=== PATIENT | female | born 1990 | race African-American/Black ===

== ENCOUNTER 2019-03-04 15:05 | Emergency (ER) | payer OTHER ==
[~2019-03-04] VITALS: Ht 170.2 cm; Wt 74.8 kg
[2019-03-04 15:54] LABS: BACTERIA,URINE 0 /HPF (0-FEW); BILIRUBIN,URINE NEG (NEG); CLARITY,URINE CLEAR; COLOR,URINE YELLOW; GLUCOSE,URINE NEG (NEG); NITRITE,URINE NEG (NEG); RBC,URINE 0 /HPF (0-2); SQUAMOUS EPITHELIAL CELL,UR OCC /LPF; UROBILINOGEN,URINE 0.2 mg/dL (0.2 mg/dL); WBC,URINE 0 /HPF (0-4)
[2019-03-04 15:55] LABS: U PREG PATIENT NEGATIVE (NEG)
[2019-03-04 15:59] LABS: AMPHETAMINE/METHAMPHETAMINE NEG (NEG); BARBITURATES NEG (NEG); BENZODIAZEPINES NEG (NEG); CANNABINOIDS NEG (NEG); COCAINE NEG (NEG); METHADONE NEG (NEG); OPIATES NEG (NEG); PHENCYCLIDINE NEG (NEG)
[2019-03-04] MEDS: hydrOXYzine HCL 25 MG TABLET PO PRN (16:06)
[2019-03-04 16:26] LABS: BASO % 1 % (0-3); EOS % 1 % (0-3); HEMATOCRIT 42.4 % (36.0-47.0); LYMPH % 34 % (24-48); MEAN CORPUSCULAR HEMOGLOBIN 31 pg (25-35); MEAN CORPUSCULAR HGB CONC 33 g/dL (31-37); MEAN CORPUSCULAR VOLUME 92 fL (79-100); MONO # 0.4 x10^3/uL (0.0-1.1); MONO % 8 % (0-9); NEUT # 3.3 x10^3uL (1.8-7.7); NEUT % 58 % (31-73); PLATELET COUNT 191 x10^3/uL (140-400); RED CELL DISTRIBUTION WIDTH 15.6 % (11.5-14.5); WHITE BLOOD COUNT 5.8 x10^3/uL (4.0-11.0)
[2019-03-04 16:42] LABS: ALBUMIN 3.8 g/dL (3.4-5.0); CALCIUM 9.3 mg/dL (8.5-10.1); CREATININE 0.8 mg/dL (0.6-1.0); GFR 101.9; POTASSIUM 3.9 mmol/L (3.5-5.1); TOTAL BILIRUBIN 0.7 mg/dL (0.2-1.0); TOTAL PROTEIN 7.7 g/dL (6.4-8.2)
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
[2019-03-04 17:08] LABS: PLT ESTIMATE ADEQUATE (ADEQUATE)
[2019-03-04 17:09] LABS: ANISOCYTOSIS SLIGHT; HYPOCHROMIA SLIGHT; POLYCHROMASIA SLIGHT
[2019-03-04] MEDS: LORazepam 1 MG TABLET PO ONE (20:09)
[2019-03-04] MEDS: FLUoxetine HCL 10 MG CAPSULE PO ONE (20:21)
[2019-03-04] MEDS: FLUoxetine HCL 20 MG CAPSULE PO ONE (20:22)
[2019-03-04] MEDS ORDERED: FLUO10CA13 PO (23:39)
[2019-03-04] MEDS ORDERED: FLUO20CA16 PO (23:39)
[2019-03-04] MEDS ORDERED: LORA-254 PO (23:39)
[2019-03-04 23:55] VITALS: BP 113/73
== END 2019-03-05 00:02 | disposition short-term general hospital (02) ==
LOC: ER 15:05
DX: F41.1 Generalized anxiety disorder (principal); F43.10 Post-traumatic stress disorder, unspecified; Z79.899 Other long term (current) drug therapy; F32.9 Major depressive disorder, single episode, unspecified; Z88.8 Allergy status to other drugs, medicaments and biological substances
CPT/HCPCS: 36415; 80053; 80307; 81001; 81025; 85025; 99285